=== PATIENT | male | born 1960 ===

== ENCOUNTER → 2023-02-05 08:15 | Outpatient (CLI) | payer BC, SELFPAY ==
--- NOTE | ~2023-02-05 | MR_ITS ---
MRI of the right elbow CLINICAL HISTORY: Pain TECHNIQUE: Proton-density and proton-density fat-sat images were acquired in the axial, coronal, and sagittal planes. FINDINGS: Ulnar collateral ligament is intact. Radial collateral ligament and the lateral ulnar colla teral ligament are intact. Common flexor and common extensor tendon origins demonstrate minimal tendi nosis. Bone marrow signals are unremarkable. No osseous or articular abnormality of the elbow joint itself s een. No significant joint effusion. There is complete rupture with retraction of the distal biceps tendon from its radial insertion. The retracted tendon is torn and frayed, and retracted probably by at least 9 cm. There is focal fluid lay[place] rrounding the retracted tendon hemorrhage, with mild edematous change at the myotendinous junction re gion of the biceps muscle belly. Brachialis and triceps tendons are intact. Remaining visualized musc ulature is unremarkable. IMPRESSION: Complete rupture of the distal biceps tendon, as detailed above, with significant retraction by proba lucita at least 9 cm. Associated low-grade muscle injury/strain at the myotendinous junction region of the biceps muscle be lly. Reviewed, dictated and finalized at location . IMPRESSION: Complete rupture of the distal biceps tendon, as detailed above, with significa nt retraction by probably at least 9 cm. Associated low-grade muscle injury/strain at the myotendinous junction region o f the biceps muscle belly.
== END ==
PROVIDERS: Visit Provider Orthopaedic Surgery Hand Surgery
DX: S46.211A Strain of muscle, fascia and tendon of other parts of biceps, right arm, initial encounter (principal); X58.XXXA Exposure to other specified factors, initial encounter
CPT/HCPCS: 73221